=== PATIENT | male | born 1955 | race African-American/Black ===

== ENCOUNTER 2017-08-02 06:54 | Emergency (ER) | payer OTHER ==
[~2017-08-02] VITALS: Ht 188 cm; Wt 113.4 kg
[2017-08-02] MEDS ORDERED: Ketorolac 60mg Inj IM ONE (07:00)
[2017-08-02 07:01] VITALS: BP 110/49
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
[2017-08-02 07:46] LABS: ANION GAP 8 mmol/L (5-15); BLOOD UREA NITROGEN 19 mg/dL (7-18); CALCIUM 8.3 MG/DL (8.5-10.1); CARBON DIOXIDE 26 MMOL/L (21-32); CHLORIDE 107 MMOL/L (98-107); CREATININE 1.4 MG/DL (0.55-1.30); SODIUM 140 MMOL/L (136-145)
[2017-08-02 07:47] LABS: BASOPHILS % (AUTO) 0.8 % (0.0-2.0); EOSINOPHILS % (AUTO) 0.9 % (0.0-3.0); HEMATOCRIT 41.9 % (42.0-52.0); HEMOGLOBIN 13.4 G/DL (14.2-18.0); LYMPHOCYTES % (AUTO) 21.6 % (20.0-45.0); MEAN CORPUSCULAR VOLUME 89 FL (80-99); MONOCYTES % (AUTO) 7.7 % (1.0-10.0); NEUTROPHILS % (AUTO) 69.2 % (45.0-75.0); PLATELET COUNT 241 K/UL (150-450); RED BLOOD COUNT 4.69 M/UL (4.70-6.10); WHITE BLOOD COUNT 10.3 K/UL (4.8-10.8)
[2017-08-02 07:59] LABS: ALANINE AMINOTRANSFERASE 42 U/L (12-78); ALBUMIN 3.4 G/DL (3.4-5.0); ALBUMIN/GLOBULIN RATIO 0.9 (1.0-2.7); ALKALINE PHOSPHATASE 68 U/L (46-116); ASPARTATE AMINO TRANSFERASE 41 U/L (15-37); BILIRUBIN,TOTAL 0.6 MG/DL (0.2-1.0); CREATINE KINASE 1145 U/L (26-308)
--- NOTE | 2017-08-02 09:55 | Diagnostic Imaging Report ---
LEFT FOREARM, 2 VIEWS INDICATION: Trauma COMPARISON: None FINDINGS: 2 views of the left radius and ulna are obtained. Bony structures are intact. Bone mineralization is within normal limits. Soft tissues are unremarkable. No radio-opaque foreign bodies seen. Olecranon enthesophytes. IMPRESSION: No acute fracture.
--- NOTE | 2017-08-02 09:59 | Diagnostic Imaging Report ---
INDICATION: Trauma COMPARISON: None FINDINGS: Single frontal view demonstrates a normal cardiomediastinal silhouette. The lungs are clear. No pleural effusions. The visualized osseous structures are within normal limits. IMPRESSION: No acute cardiopulmonary disease.
[2017-08-02 10:12] VITALS: BP 115/52
[2017-08-02] MEDS ORDERED: IBUPROFEN600 MG ORAL (10:30)
[2017-08-02] MEDS ORDERED: ROBAXIN500 MG PO (10:30)
[2017-08-02] MEDS ORDERED: BUPROPION XL300 MG ORAL ×2 (10:35→10:52)
[2017-08-02 11:12] VITALS: BP 115/52
--- NOTE | 2017-08-04 14:42 | Cardiology Report ---
APPROVED REPORT EKG Measurement Heart [id number] IN [id number] [id number] Normal sinus rhythm Possible Left atrial enlargement Borderline ECG
== END 2017-08-02 11:14 | disposition home or self-care (01) ==
LOC: EDBD 06:54 → EMR 07:00
DX: R07.89 Other chest pain (principal); F91.9 Conduct disorder, unspecified; S50.12XA Contusion of left forearm, initial encounter; X58.XXXA Exposure to other specified factors, initial encounter; Y92.9 Unspecified place or not applicable; R52 Pain, unspecified; F17.200 Nicotine dependence, unspecified, uncomplicated
CPT/HCPCS: 36415; 71045; 80053; 80329; 82550; 85025; 93005; 99284

== ENCOUNTER 2019-01-19 04:21 | Inpatient (IN) | payer OTHER ==
[~2019-01-19] VITALS: Ht 182.9 cm; Wt 108.6 kg
[~2019-01-19 04:21] MED LIST: BUPROPION XL300 MG ORAL; IBUPROFEN600 MG ORAL; ROBAXIN500 MG PO
--- NOTE | 2019-01-19 04:29 | NUR ---
ED Nurse Note: Pt [place] in by ambulance [place] bus stop, pt c/o chest pain 8/, as well as generalized pain. Pt admits to taking cocaine and marijuana earlier today.
[2019-01-19] MEDS ORDERED: Lidocaine 2% Visc 15ml soln ORAL ONE (04:30)
[2019-01-19] MEDS ORDERED: fentaNYL 100 mcg/2 mL IV ONE (04:30)
[2019-01-19 04:33] VITALS: BP 101/52
--- NOTE | 2019-01-19 04:33 | Emergency Room Report ---
History of Present Illness General Chief Complaint: Chest Pain Source: Patient Present Illness HPI 63-year-old male history of hypertension, hyperlipidemia, A. fib, CAD, CHF presents with chest pain x2 days constant no current aggravating relieving factors severity moderate, constant he feels an ache, he states he thinks the cocaine he took may have helped in the past, he took it yesterday. He endorses some shortness of breath no nausea no vomiting no diarrhea, no abdominal pain patient presents for evaluation Allergies: Coded Allergies: NITROGLYCERIN (Verified Allergy, Unknown, 01/19/19) Patient History Past Medical History: see triage record Social History: Reports: drug use Reviewed Nursing Documentation: PMH: Agreed; PSxH: Agreed Nursing Documentation-PMH Hx Cardiac Problems: Yes - afib Hx Asthma: Yes Review of Systems All Other Systems: negative except mentioned in HPI Physical Exam Vital Signs Date Time Temp Pulse Resp B/P (MAP) Pulse Ox O2 Delivery O2 Flow Rate FiO2 01/19/19 04:22 98.4 82 16 101/52 (68) 98 Room Air Sp02 EP Interpretation: reviewed, normal General Appearance: well appearing, no apparent distress, alert Head: normocephalic, atraumatic Eyes: bilateral eye PERRL, bilateral eye EOMI ENT: uvula midline, moist mucus membranes Neck: supple, thyroid normal, supple/symm/no masses Respiratory: lungs clear, no respiratory distress, no retraction, no accessory muscle use Cardiovascular #1: normal peripheral pulses, no edema, no gallop, no murmur, irregularly irregular Gastrointestinal: non tender, soft, no guarding, no rebound Musculoskeletal: normal inspection Neurologic: alert, oriented x3 Psychiatric: mood/affect normal Skin: no rash, warm/dry Medical Decision Making Diagnostic Impression: Primary Impression: Chest pain Qualified Codes: R07.9 - Chest pain, unspecified ER Course Patient with chest pain concerning for possible ACS versus dissection versus gastritis versus drug-induced chest pain versus vasospasm Patient already received aspirin in route 324 mg Patient's pain well controlled at the moment, fentanyl given Patient will be obs in telemetry Patient admitted to Dr. Rojas Laboratory Tests Test 01/19/19 04:30 White Blood Count 8.0 K/UL (4.8-10.8) Red Blood Count 4.73 M/UL (4.70-6.10) Hemoglobin 14.0 G/DL (14.2-18.0) L Hematocrit 42.8 % (42.0-52.0) Mean Corpuscular Volume 91 FL (80-99) Mean Corpuscular Hemoglobin 29.7 PG (27.0-31.0) Mean Corpuscular Hemoglobin Concent 32.8 G/DL (32.0-36.0) Red Cell Distribution Width 13.8 % (11.6-14.8) Platelet Count 222 K/UL (150-450) Mean Platelet Volume 5.3 FL (6.5-10.1) L Neutrophils (%) (Auto) 70.7 % (45.0-75.0) Lymphocytes (%) (Auto) 22.8 % (20.0-45.0) Monocytes (%) (Auto) 5.6 % (1.0-10.0) Eosinophils (%) (Auto) 0.5 % (0.0-3.0) Basophils (%) (Auto) 0.5 % (0.0-2.0) Prothrombin Time 11.1 SEC (9.30-11.50) Prothrombin Time INR 1.0 (0.9-1.1) PTT 25 SEC (23-33) Sodium Level 138 MMOL/L (136-145) Potassium Level 4.1 MMOL/L (3.5-5.1) Chloride Level 106 MMOL/L (98-107) Carbon Dioxide Level 26 MMOL/L (21-32) Anion Gap 6 mmol/L (5-15) Blood Urea Nitrogen 20 mg/dL (7-18) H Creatinine 1.3 MG/DL (0.55-1.30) Estimate Glomerular Filtration Rate > 60 mL/min (>60) Glucose Level 121 MG/DL (74-106) H Calcium Level 8.5 MG/DL (8.5-10.1) Total Bilirubin 1.0 MG/DL (0.2-1.0) Aspartate Amino Transferase (AST) 23 U/L (15-37) Alanine Aminotransferase (ALT) 24 U/L (12-78) Alkaline Phosphatase 72 U/L (46-116) Total Creatine Kinase 188 U/L (26-308) Creatine Kinase MB 3.7 NG/ML (0.0-3.6) H Creatine Kinase MB Relative Index 1.9 Troponin I 0.042 ng/mL (0.000-0.056) Pro-B-Type Natriuretic Peptide 6298 pg/mL (0-125) H Total Protein 7.2 G/DL (6.4-8.2) Albumin 3.6 G/DL (3.4-5.0) Globulin 3.6 g/dL Albumin/Globulin Ratio 1.0 (1.0-2.7) Lipase 81 U/L (73-393) EKG Diagnostic Results EKG Time: 04:21 EP Interpretation: Atrial fibrillation, rate 78, QTc 462, no acute ST elevations, flipped T wa Rhythm Strip Diag. Results Rhythm Strip Time: 04:32 EP Interpretation: yes Rate: 94 Rhythm: other - Atrial fibrillation Chest X-Ray Diagnostic Results Chest X-Ray Diagnostic Results : Chest X-Ray Ordered: Yes # of Views/Limited/Complete: 1 View Indication: Chest Pain EP Interpretation: Yes Interpretation: no consolidation, no effusion, no pneumothorax, no acute cardiopulmonary disease Impression: No acute disease Electronically Signed by: Paulino Molina MD Last Vital Signs Date Time Temp Pulse Resp B/P (MAP) Pulse Ox O2 Delivery O2 Flow Rate FiO2 01/19/19 04:22 98.4 82 16 101/52 (68) 98 Room Air Disposition: ADMITTED INPATIENT Condition: Stable Paulino Molina MD Jan 19, 2019 04:33
[2019-01-19 04:46] LABS: BASOPHILS % (AUTO) 0.5 % (0.0-2.0); EOSINOPHILS % (AUTO) 0.5 % (0.0-3.0); HEMATOCRIT 42.8 % (42.0-52.0); LYMPHOCYTES % (AUTO) 22.8 % (20.0-45.0); MEAN CORPUSCULAR VOLUME 91 FL (80-99); MONOCYTES % (AUTO) 5.6 % (1.0-10.0); NEUTROPHILS % (AUTO) 70.7 % (45.0-75.0); PLATELET COUNT 222 K/UL (150-450); RED BLOOD COUNT 4.73 M/UL (4.70-6.10); RED CELL DISTRIBUTION WIDTH 13.8 % (11.6-14.8)
[2019-01-19 05:00] LABS: ANION GAP 6 mmol/L (5-15); BLOOD UREA NITROGEN 20 mg/dL (7-18); CALCIUM 8.5 MG/DL (8.5-10.1); CARBON DIOXIDE 26 MMOL/L (21-32); CHLORIDE 106 MMOL/L (98-107); CREATININE 1.3 MG/DL (0.55-1.30); POTASSIUM 4.1 MMOL/L (3.5-5.1); SODIUM 138 MMOL/L (136-145)
[2019-01-19 05:28] LABS: ALANINE AMINOTRANSFERASE 24 U/L (12-78); ALBUMIN 3.6 G/DL (3.4-5.0); ALKALINE PHOSPHATASE 72 U/L (46-116); ASPARTATE AMINO TRANSFERASE 23 U/L (15-37); CKMB 3.7 NG/ML (0.0-3.6); CREATINE KINASE 188 U/L (26-308)
--- NOTE | 2019-01-19 07:00 | NUR ---
NURSE NOTES: Received report from JUMANA Marinelli. Patient was transferred from ED to tele via gurney without any incident. Patient is awake, lying in bed; resting comfortably. A/Ox4. Denies pain at this time. No signs of distress noted. Patient was placed on tele box, A fib on the monitor, 85 bpm. Belonging lists checked with transferring RN. Checked IV site and flushed. No erythema, bleeding or infiltration noted. Bed at lowest position, brakes on, siderailsx3. Call light within reach. Charge nurse verified admitting orders with Dr Rojas. Noted and carried out. Endorsed to JUMANA Anna. Plan of care endorsed.
--- NOTE | 2019-01-19 07:00 | NUR ---
TRANSFER TO FLOOR: Patient transferred to as ordered, per Dr Rojas. Report given to JUMANA Alvarenga. Belongings and medications given to . Family and or S/O informed of transfer.
--- NOTE | 2019-01-19 07:15 | NUR ---
HAND-OFF: Report given to JUMANA Anna. Plan of care endorsed.
--- NOTE | 2019-01-19 07:20 | NUR ---
NURSE NOTES: Received report from Colette DENNEY. Pt alert and orientedx3. Generalized body pain. No SOB noted on room air. NIV site in LAC 20G SL patent and asymptomatic. Bed in lowest position and locked. Side rails x3 up for safety. Call light within easy reach. Will continue to plan of care.
[2019-01-19 08:00] VITALS: BP 120/76
[2019-01-19] MEDS: BuPROPion XL 150mg tab ORAL SCH (09:30)
[2019-01-19] MEDS: Methocarbamol 500mg tab ORAL SCH ×3 (09:31→17:16)
--- NOTE | 2019-01-19 11:14 | NUR ---
*-* NO INSURANCE INFORMATION IN THE BAR UNABLE TO SEND CLINICALS OR REVIEWS *-*
--- NOTE | 2019-01-19 11:23 | Diagnostic Imaging Report ---
Indication: Rest pain Comparison: 08/02/2017 A single view chest radiograph was obtained. Findings: Cardiomediastinal appearance is prominent but likely within normal limits for age. The lungs are clear. Pulmonary vascularity is appropriate. The diaphragmatic contour is smooth and costophrenic angles are sharp. No pleural effusions are identified. The bones are unremarkable. Impression: No acute findings
[2019-01-19 12:00] VITALS: BP 108/77
[2019-01-19] MEDS ORDERED: Albuterol/Ipratropium 3ml neb HHN PRN (13:45)
[2019-01-19] MEDS ORDERED: Albuterol/Ipratropium 3ml neb HHN SCH ×2 (14:00→15:00)
--- NOTE | 2019-01-19 14:00 | Cardiac Electrophysiology PN ---
Subjective Subjective [id number] Objective Last 24 Hour Vital Signs Date Time Temp Pulse Resp B/P (MAP) Pulse Ox O2 Delivery O2 Flow Rate FiO2 01/19/19 12:00 97.4 85 20 108/77 (87) 98 01/19/19 09:00 Room Air 01/19/19 08:11 Room Air 01/19/19 08:00 97.3 66 20 120/76 (91) 95 01/19/19 08:00 78 01/19/19 07:12 85 01/19/19 07:00 98.4 84 16 101/52 98 Room Air 01/19/19 05:10 98.4 01/19/19 04:33 98.4 84 16 101/52 98 Room Air 01/19/19 04:33 82 16 Room Air 01/19/19 04:22 98.4 82 16 101/52 (68) 98 Room Air Laboratory Tests Test 01/19/19 04:30 White Blood Count 8.0 K/UL (4.8-10.8) Red Blood Count 4.73 M/UL (4.70-6.10) Hemoglobin 14.0 G/DL (14.2-18.0) L Hematocrit 42.8 % (42.0-52.0) Mean Corpuscular Volume 91 FL (80-99) Mean Corpuscular Hemoglobin 29.7 PG (27.0-31.0) Mean Corpuscular Hemoglobin Concent 32.8 G/DL (32.0-36.0) Red Cell Distribution Width 13.8 % (11.6-14.8) Platelet Count 222 K/UL (150-450) Mean Platelet Volume 5.3 FL (6.5-10.1) L Neutrophils (%) (Auto) 70.7 % (45.0-75.0) Lymphocytes (%) (Auto) 22.8 % (20.0-45.0) Monocytes (%) (Auto) 5.6 % (1.0-10.0) Eosinophils (%) (Auto) 0.5 % (0.0-3.0) Basophils (%) (Auto) 0.5 % (0.0-2.0) Prothrombin Time 11.1 SEC (9.30-11.50) Prothromb Time International Ratio 1.0 (0.9-1.1) Activated Partial Thromboplast Time 25 SEC (23-33) Sodium Level 138 MMOL/L (136-145) Potassium Level 4.1 MMOL/L (3.5-5.1) Chloride Level 106 MMOL/L (98-107) Carbon Dioxide Level 26 MMOL/L (21-32) Anion Gap 6 mmol/L (5-15) Blood Urea Nitrogen 20 mg/dL (7-18) H Creatinine 1.3 MG/DL (0.55-1.30) Estimat Glomerular Filtration Rate > 60 mL/min (>60) Glucose Level 121 MG/DL (74-106) H Calcium Level 8.5 MG/DL (8.5-10.1) Total Bilirubin 1.0 MG/DL (0.2-1.0) Aspartate Amino Transf (AST/SGOT) 23 U/L (15-37) Alanine Aminotransferase (ALT/SGPT) 24 U/L (12-78) Alkaline Phosphatase 72 U/L (46-116) Total Creatine Kinase 188 U/L (26-308) Creatine Kinase MB 3.7 NG/ML (0.0-3.6) H Creatine Kinase MB Relative Index 1.9 Troponin I 0.042 ng/mL (0.000-0.056) Pro-B-Type Natriuretic Peptide 6298 pg/mL (0-125) H Total Protein 7.2 G/DL (6.4-8.2) Albumin 3.6 G/DL (3.4-5.0) Globulin 3.6 g/dL Albumin/Globulin Ratio 1.0 (1.0-2.7) Lipase 81 U/L (73-393) Pascual Galeana MD Jan 19, 2019 14:00
[2019-01-19] MEDS ORDERED: ELIQUIS5 MG PO (14:05)
[2019-01-19] MEDS ORDERED: FUROSEMIDE40 MG ORAL (14:06)
--- NOTE | 2019-01-19 15:17 | NUR ---
CASE MANAGEMENT: INITIAL REVIEW 63 YR OLD MALE BIBA FROM HOME CC: CHEST PAIN SI: CHEST PAIN 98.4 82 16 101/52 98% ON RA BUN 20; BNP 6298 IS: LIDOCAONE PO X1 IV FENTANYL X1 ECG 2D ECHO CARDIO LAB CXR : 2E TELE UNIT DCP: RETURN TO HOME WHEN MEDICALLY CLEARED PLAN: CARDIO WORK UP
--- NOTE | 2019-01-19 15:19 | Cardiology Report ---
APPROVED REPORT EXAM: Two-dimensional and M-mode echocardiogram with Doppler and color Doppler. INDICATION Congestive Heart Failure M-Mode DIMENSIONS IVSd1.2 (0.7-1.1cm)Left Atrium (MM)4.7 (1.6-4.0cm) LVDd7.1 (3.5-5.6cm)Aortic Root3.2 (2.0-3.7cm) PWd1.2 (0.7-1.1cm)Aortic Cusp Exc.2.3 (1.5-2.0cm) IVSs1.9 cm LVDs6.1 (2.5-4.0cm) PWs1.7 cm Mild left ventricular enlargement . Global left ventricular hypokinesis. Ischemic cardiomyopathy can not be excluded . Left ventricular ejection fraction estimated to be 20%. No evidence of left ventricular hypertrophy. No evidence of pericardial effusion. Mild left atrial enlargement . Mild right ventricular enlargement . Moderate right atrial enlargement . Focal aortic valve sclerosis with adequate cusp excursion. Thickened mitral valve leaflets with normal excursion. Mitral annulus and aortic root calcification. Normal pulmonic valve structure. Normal tricuspid valve structure. Subcostal views not otained . A color flow and spectral Doppler study was performed and revealed: No aortic insufficiency. Mild to moderate mitral regurgitation. Mitral inflow indicates normal left ventricular diastolic function. Mild tricuspid regurgitation.
--- NOTE | 2019-01-19 15:30 | NUR ---
NURSE NOTES: When the nurse was providing information that the patient cannot keep the meds at the bedside, the patient refused and said "you motherfucker get out of my room, your are shit" The nurse explained to the patient that the meds can not be kept by the bedside. He also refsued the dipper and drier from drawing the blood from the patient and told the dipper and drier "you are shit, motherfucker" the nuse explained to the patient that types of hostile language can not be used and is inappropriate to use when speaking to the staffs. Made Dr. Galeana aware.
[2019-01-19 16:00] VITALS: BP 133/78
--- NOTE | 2019-01-19 17:10 | NUR ---
HAND-OFF: Report given to Tiera DENNEY. Pt remains stable.
[2019-01-19] MEDS: Eliquis 5mg tablet ORAL SCH (17:17)
--- NOTE | 2019-01-19 18:26 | NUR ---
NURSE NOTES: Made Dr. Galeana aware of 2D Echo results
--- NOTE | 2019-01-19 19:15 | NUR ---
NURSE NOTES: Received patient from JUMANA Anna. Patient resting in bed comfortably, AOx4, no signs of shortness of breath, distress, or pain noted. Patient able to make needs known and ambulates with steady gait. IV site checked, intact and patent, with no signs of infiltration, bleeding, or erythema. Bed in lowest position, brakes on, side rails up x2, and call light within reach. Will continue with plan of care.
[2019-01-19] MEDS: Albuterol/Ipratropium 3ml neb HHN SCH ×2 (19:50→23:00)
--- NOTE | 2019-01-19 22:16 | Consultation ---
DATE OF CONSULTATION: 01/19/2019 CARDIOLOGY CONSULTATION CONSULTING PHYSICIAN: Pascual Galeana M.D. REFERRING PHYSICIAN: Elle Rojas M.D. REASON FOR CONSULTATION: Management of hypertension, atrial fibrillation, and congestive heart failure. HISTORY OF PRESENT ILLNESS: The patient is a 63-year-old gentleman with hypertension, chronic atrial fibrillation, hyperlipidemia, coronary artery disease, and congestive heart failure, presented to the emergency room for two days of chest pain. The patient thinks that the cocaine he took might have helped in the past and took cocaine again. The patient came to the emergency room. The blood pressure was 101/52 with heart rate of 82 and atrial fibrillation. It was reported the patient is on Eliquis at home, but he does not know the dosage. REVIEW OF SYSTEMS: Negative other than what was mentioned in the history of present illness. PAST MEDICAL HISTORY: As mentioned above. FAMILY HISTORY: Noncontributory. SOCIAL HISTORY: He uses cocaine on occasion, and smokes and drink alcohol. LABORATORY AND DIAGNOSTIC DATA: Labs show sodium 138, potassium 4.1, BUN of 20, creatinine 1.3, and glucose of 121. Troponin is negative. White count is 8, hemoglobin 14, hematocrit 42.2, platelet count of 222,000. EKG showed atrial fibrillation with nonspecific ST-T wave abnormalities. ASSESSMENT AND PLAN: 1. Chest pain. This could be due to cocaine use. First troponin is negative. We completely ruled out SC protocol. Repeat EKG and echocardiogram for further evaluation. Avoid beta-gabino in view of active cocaine use. We will check urine toxicology screen. 2. Atrial fibrillation. Resume Eliquis 5 mg b.i.d. 3. History of congestive heart failure with he is on at home. Started on Lasix 40 mg IV b.i.d. and avoid beta-gabino in view of coronary artery disease and get an echocardiogram to evaluate for ejection fraction and wall motion abnormality. But I would start him on lisinopril, Aldactone as well. 4. Substance use with cocaine. Thank you very much for allowing me to participate in the care of this patient. Please do not hesitate to contact me for any questions regarding my evaluation. Pascual Galeana M.D. DR: BLANCA JOB#: [id number] CC:
[2019-01-20] MEDS: Albuterol/Ipratropium 3ml neb HHN SCH ×6 (02:39→23:00)
--- NOTE | 2019-01-20 03:45 | History and Physical Report ---
DATE OF ADMISSION: 01/19/2019 HISTORY OF PRESENT ILLNESS: The patient is admitted for chest pain, rule out acute coronary syndrome, and also the patient has a history of atrial fibrillation. The patient has complained of chest pain for about 2 days that radiated to the left shoulder. The patient has a history of asthma as well. Denies heartburn. Denies nausea or vomiting. Denies fever or chills. Denies shortness of breath, cough, or chills. PAST MEDICAL HISTORY: Significant for chronic pain syndrome, asthma, contusion of the left forearm in the past, atrial fibrillation, and depression. PAST SURGICAL HISTORY: Left knee surgery. ALLERGIES: To nitroglycerin. MEDICATIONS: Wellbutrin, Lasix, Robaxin, and Eliquis. FAMILY HISTORY: Noncontributory. SOCIAL HISTORY: History of smoking, history of drug abuse, and history of alcohol abuse. REVIEW OF SYSTEMS: HEENT: Denies headaches. RESPIRATORY: Denies shortness of breath. Denies cough. CARDIOVASCULAR: Reports chest pain for two days that radiates to the shoulder. No orthopnea. GASTROINTESTINAL: No nausea, vomiting, or diarrhea. CENTRAL NERVOUS SYSTEM: Denies any change in vision or speech pattern. PHYSICAL EXAMINATION: VITAL SIGNS: Temperature 97.3, pulse is 66, and blood pressure 120/76. HEENT: PERRLA. NECK: Supple. No lymphadenopathy. CHEST: Clear to auscultation. CARDIOVASCULAR: Regular rate and rhythm. GASTROINTESTINAL: Soft and nontender. No organomegaly. EXTREMITIES: No edema. Reflexes on both sides. Moves all extremities. LABORATORY DATA: WBC , hemoglobin 14. Sodium 138, potassium 4.1, BUN of 20, and creatinine 1.3. Troponin 0.042. ASSESSMENT AND PLAN: 1. Chest pain. 2. Elevated troponin. 3. Atrial fibrillation, rate controlled. I have asked Dr. Galeana, Dr. Delvalle, Dr. Zavala to see the patient for pain management as well as for troponin elevation, as well as elevated BNP. Elle Rojas M.D. DR: ALEXIS JOB#: [id number] CC:
--- NOTE | 2019-01-20 06:41 | NUR ---
NURSE NOTES: Patient refused EKG twice. Charge nurse informed. Will endorse to day shift nurse. Will continue to monitor.
--- NOTE | 2019-01-20 07:20 | NUR ---
HAND-OFF: Report given to JUMANA Curry. Plan of care endorsed.
[2019-01-20 07:42] LABS: CHOLESTEROL 88 MG/DL (< 200); HDL CHOLESTEROL 44 MG/DL (40-60); TRIGLYCERIDES 47 MG/DL (30-150)
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
[2019-01-20 08:05] VITALS: BP 114/83
--- NOTE | 2019-01-20 09:08 | Consultation ---
History of Present Illness General Date patient seen: Jan 20, 2019 Chief Complaint: Present Illness Allergies: Coded Allergies: NITROGLYCERIN (Verified Allergy, Unknown, 01/19/19) Medication History Scheduled Bupropion Hcl* (Wellbutrin*), 300 MG ORAL DAILY Furosemide* (Lasix*), 40 MG ORAL DAILY, (Reported) Methocarbamol* (Robaxin*), 500 MG PO TID Scheduled PRN Ibuprofen* (Motrin*), 600 MG ORAL Q6H PRN for For Pain Miscellaneous Medications Apixaban (Eliquis), 5 MG PO, (Reported) Patient History Healthcare decision maker Resuscitation status Full Code Advanced Directive on File Physical Exam Last 24 Hour Vital Signs Date Time Temp Pulse Resp B/P (MAP) Pulse Ox O2 Delivery O2 Flow Rate FiO2 01/20/19 08:18 Room Air 01/20/19 08:05 97.8 63 22 114/83 (93) 98 01/20/19 07:59 98 18 99 Nasal Cannula 2.0 28 104 18 96 01/20/19 04:00 88 01/20/19 00:00 78 01/19/19 21:00 Room Air 01/19/19 20:00 85 01/19/19 16:00 98.8 86 20 133/78 (96) 98 01/19/19 16:00 81 01/19/19 14:26 50 12 99 Nasal Cannula 2.0 28 48 12 97 01/19/19 12:00 97.4 85 20 108/77 (87) 98 01/19/19 12:00 81 Intake and Output 01/19/19 01/20/19 19:00 07:00 Intake Total 660 ml 480 ml Balance 660 ml 480 ml Intake Oral 660 ml 480 ml # Voids 4 2 Laboratory Tests Test 01/19/19 22:50 01/20/19 00:08 01/20/19 06:44 Troponin I 0.026 ng/mL (0.000-0.056) 0.041 ng/mL (0.000-0.056) Urine Opiates Screen Negative (NEGATIVE) Urine Barbiturates Screen Negative (NEGATIVE) Phencyclidine (PCP) Screen Negative (NEGATIVE) Urine Amphetamines Screen Negative (NEGATIVE) Urine Benzodiazepines Screen Negative (NEGATIVE) Urine Cocaine Screen Positive (NEGATIVE) H Urine Marijuana (THC) Screen Positive (NEGATIVE) H Pro-B-Type Natriuretic Peptide 3727 pg/mL (0-125) H Triglycerides Level 47 MG/DL (30-150) Cholesterol Level 88 MG/DL (< 200) LDL Cholesterol 39 mg/dL (<100) HDL Cholesterol 44 MG/DL (40-60) Cholesterol/HDL Ratio 2.0 (3.3-4.4) L Digoxin Level < 0.2 NG/ML (0.5-2.0) L Height (Feet): 6 Height (Inches): 0.00 Weight (Pounds): 239 Medications Current Medications Medications (Trade) Dose Ordered Sig/Johann Route PRN Reason Start Time Stop Time Status Last Admin Dose Admin Acetaminophen (Tylenol) 650 mg Q4H PRN ORAL Mild Pain/Temp > 100.5 01/19/19 08:15 02/18/19 08:14 Albuterol/ Ipratropium (Albuterol/ Ipratropium) 3 ml Q4H PRN HHN Shortness of breath 01/19/19 13:45 01/24/19 13:44 Albuterol/ Ipratropium (Albuterol/ Ipratropium) 3 ml Q4HRT HHN 01/19/19 19:00 01/24/19 18:59 01/20/19 07:59 Apixaban (Eliquis) 5 mg BID ORAL 01/19/19 18:00 02/18/19 17:59 01/19/19 17:17 Bupropion HCl (Wellbutrin XL) 300 mg DAILY ORAL 01/19/19 09:00 02/18/19 08:59 01/19/19 09:30 Furosemide (Lasix) 40 mg EVERY 12 HOURS IV 01/19/19 21:00 02/18/19 20:59 01/19/19 21:14 Ibuprofen (Motrin) 600 mg Q6H PRN ORAL For Pain 01/19/19 08:15 02/18/19 08:14 01/19/19 16:30 Lisinopril (Zestril) 10 mg DAILY ORAL 01/20/19 09:00 02/19/19 08:59 Methocarbamol (Robaxin) 500 mg TID ORAL 01/19/19 09:00 02/18/19 08:59 01/19/19 17:16 Assessment/Plan Assessment/Plan: (1) Lumbar degenerative disk disease (2) Lumbar spondylosis (3) Lumbar radiculopathy (4) Cocaine abuse seen dictated Hoang Stoner Jan 20, 2019 09:08
[2019-01-20] MEDS: Methocarbamol 500mg tab ORAL SCH ×3 (09:25→17:47)
[2019-01-20] MEDS: BuPROPion XL 150mg tab ORAL SCH (09:25)
[2019-01-20] MEDS: Eliquis 5mg tablet ORAL SCH ×2 (09:26→17:47)
[2019-01-20] MEDS: Lisinopril 10mg tab ORAL SCH (09:27)
--- NOTE | 2019-01-20 09:50 | Cardiac Electrophysiology PN ---
Assessment/Plan Assessment/Plan 1. Chest pain. This could be due to cocaine use. Completely ruled out for OR. Avoid beta-gabino in view of active cocaine use. We will check urine toxicology screen. 2. Atrial fibrillation. On Eliquis 5 mg b.i.d. Will load with Digoxin 3. History of congestive heart failure EF 20%. On Lasix 40 mg IV b.i.d. and avoid beta-gabino in view of coronary artery disease . Also on lisinopril, Aldactone as well. 4. Substance use with cocaine. Subjective Subjective Echo showed EF 20-25% and urine Tox screen positive for cocaine Objective Last 24 Hour Vital Signs Date Time Temp Pulse Resp B/P (MAP) Pulse Ox O2 Delivery O2 Flow Rate FiO2 01/20/19 09:27 114/83 01/20/19 08:18 Room Air 01/20/19 08:05 97.8 63 22 114/83 (93) 98 01/20/19 07:59 98 18 99 Nasal Cannula 2.0 28 104 18 96 01/20/19 04:00 88 01/20/19 00:00 78 01/19/19 21:00 Room Air 01/19/19 20:00 85 01/19/19 16:00 98.8 86 20 133/78 (96) 98 01/19/19 16:00 81 01/19/19 14:26 50 12 99 Nasal Cannula 2.0 28 48 12 97 01/19/19 12:00 97.4 85 20 108/77 (87) 98 01/19/19 12:00 81 Intake and Output 01/19/19 01/20/19 19:00 07:00 Intake Total 660 ml 480 ml Balance 660 ml 480 ml Intake Oral 660 ml 480 ml # Voids 4 2 Laboratory Tests Test 01/19/19 22:50 01/20/19 00:08 01/20/19 06:44 Troponin I 0.026 ng/mL (0.000-0.056) 0.041 ng/mL (0.000-0.056) Urine Opiates Screen Negative (NEGATIVE) Urine Barbiturates Screen Negative (NEGATIVE) Phencyclidine (PCP) Screen Negative (NEGATIVE) Urine Amphetamines Screen Negative (NEGATIVE) Urine Benzodiazepines Screen Negative (NEGATIVE) Urine Cocaine Screen Positive (NEGATIVE) H Urine Marijuana (THC) Screen Positive (NEGATIVE) H Pro-B-Type Natriuretic Peptide 3727 pg/mL (0-125) H Triglycerides Level 47 MG/DL (30-150) Cholesterol Level 88 MG/DL (< 200) LDL Cholesterol 39 mg/dL (<100) HDL Cholesterol 44 MG/DL (40-60) Cholesterol/HDL Ratio 2.0 (3.3-4.4) L Digoxin Level < 0.2 NG/ML (0.5-2.0) L Objective HEENT: positive JVD LUNGS: Decreased breath sounds CVS:IRRR ABDOMEN: Soft EXT: 1 plus edema Pascual Galeana MD Jan 20, 2019 09:50
[2019-01-20] MEDS ORDERED: Digoxin 0.5mg/2ml Inj IVP SCH (10:00)
[2019-01-20 11:56] VITALS: BP 123/77
--- NOTE | 2019-01-20 12:29 | NUR ---
CASE MANAGEMENT: REVIEW 01/20/19 SI: CHEST PAIN (+ COCAINE) 97.8 63 22 114/83 98% ON RA BNP 3727; DIG <0.2 IS: IV DIGOXIN X1 DIGOXIN PO QD LASIX PO QD LISINOPRIL PO QD ELIQUIS PO BID ALBUTEROL HHN Q4HR WELLBUTRIN PO QD ROBAXIN PO TID : 2E TELE UNIT DCP: RETURN TO HOME WHEN MEDICALLY CLEARED PLAN: EKG- PT REFUSED X2
[2019-01-20 16:00] VITALS: BP 133/61
--- NOTE | 2019-01-20 18:15 | Consultation ---
DATE OF CONSULTATION: 01/20/2019 PAIN MANAGEMENT CONSULTATION CONSULTING PHYSICIAN: Logan Zavala M.D. REFERRING PHYSICIAN: Elle Rojas M.D. PHYSICIAN ALL SOURCE ANALYST: Steffi Devi CHIEF COMPLAINT: Low back pain. HISTORY OF PRESENT ILLNESS: This is a 63-year-old male, who is being seen on the telemetry floor of [facility] for comprehensive pain management consultation. The patient is a known patient from previous hospital admissions and now has been admitted under the care of Dr. Rojas with chest pain and has been positive for cocaine on urine exam as well as having history of alcohol abuse, complaining of back pain. He was started on methocarbamol 500 mg tablet 3 times a day, Motrin 60 mg tablet every 6 hours as needed for pain, and we were consulted so that the patient would have adequate pain control while here in the hospital. When entering the room with the nurse at bedside, the patient became very agitated, screaming, yelling, and cursing and was unable to be talked to, and was very angry and did not wanted to be seen at that time. Due to this, we continued the ibuprofen and methocarbamol as needed. This was discussed with the nurse. REVIEW OF SYSTEMS: Denies rash, fever, chills, sweating, dizziness, drowsiness, blurred vision, sore throat, or change in his weight. He is complaining of low back pain. PHYSICAL EXAMINATION: GENERAL: Alert, awake, and oriented. VITAL SIGNS: Blood pressure 114/82, heart rate 63, oxygen saturation 98%, respirations 20, and temperature of 97.8 degrees Fahrenheit. LUNGS: Decreased breath sounds bilaterally. HEART: S1 and S2 regular. ABDOMEN: Soft and nontender. EXTREMITIES: No cyanosis, no clubbing. No edema. NEUROLOGICAL: No focal deficit. ASSESSMENT AND PLAN: This is a 63-year-old male with lumbar degenerative disc disease, lumbar spondylosis, lumbar radiculopathy, and cocaine abuse. The patient will be continued on Motrin and Robaxin. Recommend the patient to be seen by psychiatrist for first psychiatric evaluation. The patient was discussed with Dr. Zavala and he concurred. We will follow up with the patient. Logan Zavala M.D. RHONDA Devi DR: JAKY JOB#: [id number] CC: KAMALJIT
--- NOTE | 2019-01-20 19:48 | NUR ---
HAND-OFF: Report given to Nika Sy.
--- NOTE | 2019-01-20 19:50 | NUR ---
NURSE NOTES: Received pt from JUMANA Curry. Pt awake, alert, and talkative. Bed in lowest position. Call light within reach. Will continue to monitor.
[2019-01-20 20:00] VITALS: BP 119/80
--- NOTE | 2019-01-20 21:17 | General Progress Note ---
Assessment/Plan Problem List: (1) Chest pain ICD Codes: R07.9 - Chest pain, unspecified SNOMED: [id number] Qualifiers: Qualified Codes: R07.9 - Chest pain, unspecified Status: progressing Assessment/Plan: cp r/o acs afebrile check trop vitals stable Subjective ROS Limited/Unobtainable: Yes Allergies: Coded Allergies: NITROGLYCERIN (Verified Allergy, Unknown, 01/19/19) Objective Last 24 Hour Vital Signs Date Time Temp Pulse Resp B/P (MAP) Pulse Ox O2 Delivery O2 Flow Rate FiO2 01/20/19 20:43 76 18 100 Nasal Cannula 2.0 28 74 18 99 01/20/19 16:00 98.6 81 20 133/61 (85) 98 01/20/19 11:56 98.8 73 19 123/77 (92) 98 01/20/19 11:38 90 01/20/19 11:01 75 18 99 Nasal Cannula 2.0 28 79 18 97 01/20/19 10:02 97 01/20/19 09:27 114/83 01/20/19 08:18 Room Air 01/20/19 08:05 97.8 63 22 114/83 (93) 98 01/20/19 07:59 98 18 99 Nasal Cannula 2.0 28 104 18 96 01/20/19 07:45 129 01/20/19 04:00 88 01/20/19 00:00 78 Intake and Output 01/19/19 01/20/19 19:00 07:00 Intake Total 660 ml 480 ml Balance 660 ml 480 ml Intake Oral 660 ml 480 ml # Voids 4 2 Laboratory Tests 01/19/19 22:50: Troponin I 0.026 01/20/19 00:08: Urine Opiates Screen Negative, Urine Barbiturates Screen Negative, Phencyclidine (PCP) Screen Negative, Urine Amphetamines Screen Negative, Urine Benzodiazepines Screen Negative, Urine Cocaine Screen PositiveH, Urine Marijuana (THC) Screen PositiveH 01/20/19 06:44: Troponin I 0.041, Pro-B-Type Natriuretic Peptide 3727H, Triglycerides Level 47, Cholesterol Level 88, LDL Cholesterol 39, HDL Cholesterol 44, Cholesterol/HDL Ratio 2.0L, Digoxin Level < 0.2L Height (Feet): 6 Height (Inches): 0.00 Weight (Pounds): 239 Neck: normal alignment Cardiovascular: normal rate Respiratory/Chest: lungs clear Elle Rojas MD Jan 20, 2019 21:17
[2019-01-20 23:09] VITALS: BP 113/68
[2019-01-21] MEDS: Albuterol/Ipratropium 3ml neb HHN SCH ×2 (03:43→07:00)
--- NOTE | 2019-01-21 06:55 | NUR ---
HAND-OFF: Report given to JUMANA Curry. Pt stable.
--- NOTE | 2019-01-21 08:01 | NUR ---
NURSE NOTES: Pt has been resistive to care, however, pt is up and walking around, wants to leave and hopes he will get an inhaler rx, pt ox4 calm and cooperative and shows some aggressive/intimidating behavior and is also sometimes friendly, he states he needs to leave today for an appointment in mental health, pt denies pain, no s/s of distress or sob noted.
--- NOTE | 2019-01-21 08:55 | General Progress Note ---
Assessment/Plan Assessment/Plan: (1) Lumbar degenerative disk disease (2) Lumbar spondylosis (3) Lumbar radiculopathy (4) Cocaine abuse Pt to be continued on Motrin and Robaxin. D/w Dr. Brown and he concurred. Subjective Date patient seen: Jan 21, 2019 Time patient seen: 08:15 - am Allergies: Coded Allergies: NITROGLYCERIN (Verified Allergy, Unknown, 01/19/19) Subjective REVIEW OF SYSTEMS: Denies rash, fever, chills, sweating, dizziness, drowsiness, blurred vision, sore throat, or change in his weight. He is complaining of low back pain. SUBJECTIVE: Patient is in bed no signs of pain or distress. Pain has been at a tolerable level. No new complaints at this time. Objective Last 24 Hour Vital Signs Date Time Temp Pulse Resp B/P (MAP) Pulse Ox O2 Delivery O2 Flow Rate FiO2 01/21/19 08:22 Room Air 01/21/19 04:35 115 01/21/19 03:43 89 18 99 Room Air 21 87 18 97 01/20/19 23:09 57 113/68 (83) 98 01/20/19 21:00 Room Air 01/20/19 20:43 76 18 100 Nasal Cannula 2.0 28 74 18 99 01/20/19 20:00 97.2 73 20 119/80 (93) 98 01/20/19 16:00 98.6 81 20 133/61 (85) 98 01/20/19 11:56 98.8 73 19 123/77 (92) 98 01/20/19 11:38 90 01/20/19 11:01 75 18 99 Nasal Cannula 2.0 28 79 18 97 01/20/19 10:02 97 01/20/19 09:27 114/83 Intake and Output 01/20/19 01/21/19 19:00 07:00 Intake Total 280 ml 140 ml Balance 280 ml 140 ml Intake Oral 280 ml 140 ml # Voids 3 Height (Feet): 6 Height (Inches): 0.00 Weight (Pounds): 239 Objective GENERAL: Alert, awake, and oriented. LUNGS: Decreased breath sounds bilaterally. HEART: S1 and S2 regular. ABDOMEN: Soft and nontender. EXTREMITIES: No cyanosis, no clubbing. No edema. NEUROLOGICAL: No focal changes. Hoang Stoner Jan 21, 2019 08:55
[2019-01-21] MEDS: BuPROPion XL 150mg tab ORAL SCH (09:00)
[2019-01-21] MEDS: Eliquis 5mg tablet ORAL SCH (09:00)
[2019-01-21] MEDS: Lisinopril 10mg tab ORAL SCH (09:00)
[2019-01-21] MEDS: Methocarbamol 500mg tab ORAL SCH (09:00)
--- NOTE | 2019-01-21 09:58 | NUR ---
NURSE NOTES: Pt didnt want want to wait for the doctor to clear him, he was anxious and stated he need to go somewhere didnot really state where. AMA form signed and pt made aware that needs to follow up with his local clinic or Md for further evaluation of his elevated heart rate and low ejection fraction. Pt took his belongings and stated he has everything. Pt was walked out by RN and pointed to the nearest bus stop. IV removed and ID removed.
--- NOTE | 2019-01-21 15:50 | NUR ---
*-* INSURANCE *-* ALL AVAILABLE CLINICALS HAVE BEEN FAXED TO: [facility] [place]: [place] [id number] [phone] [id number] F- [phone]..........REVIEW/CLINICAL
--- NOTE | 2019-01-21 19:58 | Discharge Summary ---
Discharge Summary Discharge Summary _ DATE OF ADMISSION: 01/19/2019 DATE OF DISCHARGE: 01/21/2019 CONSULTANTS: Dr. Pascual Zavala BRIEF HOSPITAL COURSE: Patient is a 63-year-old male, with history of hyperlipidemia, atrial fibrillation, hypertension, coronary artery disease and CHF presented to ED for complaints of chest pain for 2 days. He had constant chest pain, no aggravatimg or relieving factors, severity moderate. He thinks the cocaine he took may have helped in the past, he took admitted prior to admission. He endorsed shortness of breath. No nausea, no vomiting, no diarrhea, no abdominal pain. On evaluation at the ED, vital signs were stable. Blood work did not show any leukocytosis. Hemoglobin and hematocrit were stable. Electrolytes were normal. Initial troponin was elevated to 0.0 42. EKG showed atrial fibrillation with a rate of 78, QTc 462, no acute ST elevation, flipped T waves. He was given aspirin 325 mg in route. He was given fentanyl. Chest x- ray did not show any acute cardiopulmonary disease. He was then admitted to telemetry for evaluation of chest pain. Cardiac enzymes were monitored. Folder Machine Operator was consulted. He was continued on Eliquis for atrial fibrillation. He was started on Lasix 40 mg IV twice daily for CHF. He was given lisinopril and Aldactone. Avoid beta-gabino in view of cocaine use. Pain management was consulted. Patient was given Motrin and Robaxin. Echocardiogram showed EF of 20%. He was given Digoxin. Urine toxicology screen was positive for cocaine. Chest pain possibly due to cocaine use. Full treatment was not carried out as patient left against medical advise. FINAL DIAGNOSES: Chest pain possibly due to cocaine use Fibrillation on Eliquis Congestive heart failure Substance abuse with cocaine DISPOSITION: Patient left against medical advise. I have been assigned to complete a discharge summary on this account, I was not involved with the patient's management.--GUERLINE Mendoza Jacqueline Robles NP Jan 21, 2019 19:58
--- NOTE | 2019-01-24 13:09 | NUR ---
*-* INSURANCE *-* DISCHARGE SUMMARY HAS BEEN FAXED TO: [facility] [place] [id number] [phone] [id number] F- [phone]..........REVIEW/CLINICAL
== END 2019-01-21 10:02 | disposition left against medical advice (07) | DRG 816 ==
LOC: EDBD 04:21 → EMR 04:29 → OBSVTOIN 05:44 → 2E 05:44 → EDBEDREQ 06:18
DX: T40.5X1A Poisoning by cocaine, accidental (unintentional), initial encounter (principal); R07.9 Chest pain, unspecified; F14.10 Cocaine abuse, uncomplicated; I48.91 Unspecified atrial fibrillation; I10 Essential (primary) hypertension; E78.5 Hyperlipidemia, unspecified; I25.10 Atherosclerotic heart disease of native coronary artery without angina pectoris; Z88.8 Allergy status to other drugs, medicaments and biological substances; R74.8 Abnormal levels of other serum enzymes; M51.16 Intervertebral disc disorders with radiculopathy, lumbar region; M47.896 Other spondylosis, lumbar region; Z79.01 Long term (current) use of anticoagulants
CPT/HCPCS: 36415; 71045; 80053; 80061; 80162; 80307; 82550; 82553; 83690; 83880; 84484; 85025; 85610; 85730; 93005; 93306; 94640; 96374; 99285; J7620